=== PATIENT | male | born 1935 | race Caucasian/White ===

== ENCOUNTER 2020-02-08 16:32 | Emergency (ER) | payer OTHER, MEDICARE ==
[~2020-02-08] VITALS: Ht 195.6 cm; Wt 96.8 kg
[2020-02-08 17:13] LABS: BASOPHILS % (AUTO) 1.1 % (0-1); EOSINOPHILS # (AUTO) 0.1 X10'3 (0-0.9); EOSINOPHILS % (AUTO) 2.8 % (0-6); HEMATOCRIT 36.9 % (42.0-52.0); HEMOGLOBIN 12.9 g/dl (14.0-17.9); LYMPHOCYTES # (AUTO) 0.7 X10'3 (1.1-4.8); LYMPHOCYTES % (AUTO) 15.9 % (21-51); MEAN CORPUSCULAR HEMOGLOBIN 33.1 PG (27.0-31.0); MEAN CORPUSCULAR VOLUME 94.5 FL (78-98); MEAN PLATELET VOLUME 7.4 FL (7.4-10.4); MONOCYTES # (AUTO) 0.3 X10'3 (0-0.9); NEUTROPHILS # (AUTO) 3.1 X10'3 (1.8-7.7); NEUTROPHILS % (AUTO) 73.2 % (42-75); PLATELET COUNT 180 X10'3 (140-440); RED CELL DISTRIBUTION WIDTH 13.5 % (11.5-14.5); WHITE BLOOD COUNT 4.2 X10'3 (4.5-11.0)
[2020-02-08] MEDS ORDERED: LOSA100T57 PO (17:13)
[2020-02-08] MEDS ORDERED: METF-900 PO (17:13)
[2020-02-08] MEDS ORDERED: CARV-50 PO (17:13)
[2020-02-08 17:26] LABS: ALANINE AMINOTRANSFERASE 22 U/L (12-78); ALBUMIN 3.9 G/DL (3.4-5.0); ALBUMIN/GLOBULIN RATIO 1.5 (1.1-1.5); ALKALINE PHOSPHATASE 62 IU/L (46-116); ANION GAP 9 (8-16); ASPARTATE AMINO TRANSFERASE 13 U/L (10-37); BILIRUBIN,TOTAL 0.7 MG/DL (0.1-1.0); BLOOD UREA NITROGEN 20 MG/DL (7-18); CALCIUM 8.7 MG/DL (8.5-10.1); CHLORIDE 96 MMOL/L (99-107); CREATININE 1.43 MG/DL (0.60-1.10); GLUCOSE 174 MG/DL (70-104); POTASSIUM 4.2 MMOL/L (3.5-5.1); SODIUM 131 MMOL/L (135-145); TOTAL CARBON DIOXIDE 26.2 MMOL/L (24-32); TOTAL PROTEIN 6.5 G/DL (6.4-8.2); eGFR 47 ML/MIN
[2020-02-08 18:07] VITALS: BP 145/83
== END 2020-02-08 17:55 | disposition home or self-care (01) ==
LOC: ER 16:33
DX: I95.1 Orthostatic hypotension (principal); T44.6X5A Adverse effect of alpha-adrenoreceptor antagonists, initial encounter; E11.9 Type 2 diabetes mellitus without complications; Y92.89 Other specified places as the place of occurrence of the external cause
CPT/HCPCS: 36415; 71045; 80053; 84484; 85025; 93005; 99285

== ENCOUNTER 2021-11-16 03:57 | Emergency (ER) | payer OTHER, MEDICARE ==
[~2021-11-16] VITALS: Ht 195.6 cm; Wt 92.7 kg
[~2021-11-16 03:57] MED LIST: CARV-50 PO; LOSA100T57 PO; METF-900 PO
--- NOTE | 2021-11-16 04:51 | NUR ---
Pt. stated he wanted to "kill two birds with one stone" by coming to the ED with chest pain because he is also having hip problems and wants to get an x-ray done.
[2021-11-16 05:40] LABS: BASOPHILS % (AUTO) 0.2 % (0-1); EOSINOPHILS # (AUTO) 0.1 X10'3 (0-0.9); EOSINOPHILS % (AUTO) 1.5 % (0-6); HEMATOCRIT 35.2 % (42.0-52.0); HEMOGLOBIN 12.1 g/dl (14.0-17.9); LYMPHOCYTES # (AUTO) 0.7 X10'3 (1.1-4.8); LYMPHOCYTES % (AUTO) 15.4 % (21-51); MEAN CORPUSCULAR HEMOGLOBIN 32.4 PG (27.0-31.0); MEAN CORPUSCULAR HGB CONC 34.5 g/dL (33.0-36.5); MEAN CORPUSCULAR VOLUME 93.8 FL (78-98); MEAN PLATELET VOLUME 7.2 FL (7.4-10.4); MONOCYTES # (AUTO) 0.4 X10'3 (0-0.9); MONOCYTES % (AUTO) 7.8 % (2-12); NEUTROPHILS # (AUTO) 3.5 X10'3 (1.8-7.7); NEUTROPHILS % (AUTO) 75.1 % (42-75); PLATELET COUNT 183 X10'3 (140-440); RED BLOOD COUNT 3.75 X10'6 (4.70-6.10); RED CELL DISTRIBUTION WIDTH 14.1 % (11.5-14.5); WHITE BLOOD COUNT 4.7 X10'3 (4.5-11.0)
[2021-11-16 05:53] LABS: ALANINE AMINOTRANSFERASE 71 U/L (12-78); ALBUMIN 3.5 G/DL (3.4-5.0); ALBUMIN/GLOBULIN RATIO 1.5 (1.1-1.5); ALKALINE PHOSPHATASE 95 IU/L (46-116); ANION GAP 4 (8-16); ASPARTATE AMINO TRANSFERASE 101 U/L (10-37); BILIRUBIN,TOTAL 1.3 MG/DL (0.1-1.0); BLOOD UREA NITROGEN 15 MG/DL (7-18); BUN/CREATININE RATIO 18.5 (5.4-32.0); CALCIUM 8.4 MG/DL (8.5-10.1); CHLORIDE 102 MMOL/L (99-107); CREATININE 0.81 MG/DL (0.60-1.10); GLUCOSE 183 MG/DL (70-104); POTASSIUM 4.1 MMOL/L (3.5-5.1); SODIUM 135 MMOL/L (135-145); TOTAL CARBON DIOXIDE 28.7 MMOL/L (24-32); TOTAL PROTEIN 5.8 G/DL (6.4-8.2); eGFR > 90 ML/MIN
[2021-11-16 08:14] VITALS: BP 120/73
== END 2021-11-16 08:21 | disposition home or self-care (01) ==
LOC: ER 03:57
DX: R07.89 Other chest pain (principal); R10.13 Epigastric pain; I10 Essential (primary) hypertension; E11.9 Type 2 diabetes mellitus without complications; N40.0 Benign prostatic hyperplasia without lower urinary tract symptoms; Z88.0 Allergy status to penicillin; Z79.899 Other long term (current) drug therapy; Z79.01 Long term (current) use of anticoagulants
CPT/HCPCS: 36415; 71045; 80053; 83880; 84484; 85025; 93005; 99285

== ENCOUNTER 2021-11-29 08:49 | Emergency (ER) | payer OTHER, MEDICARE ==
[~2021-11-29] VITALS: Ht 195.6 cm; Wt 90.9 kg
[2021-11-29 09:18] VITALS: BP 132/64
[2021-11-29] MEDS ORDERED: MUPI22OI30 TOP (10:53)
== END 2021-11-29 11:11 | disposition home or self-care (01) ==
LOC: ER 08:50
DX: L24.9 Irritant contact dermatitis, unspecified cause (principal); M54.50 Low back pain, unspecified; I10 Essential (primary) hypertension; E11.9 Type 2 diabetes mellitus without complications; N40.0 Benign prostatic hyperplasia without lower urinary tract symptoms; Z88.0 Allergy status to penicillin; Z79.2 Long term (current) use of antibiotics; Z79.899 Other long term (current) drug therapy
CPT/HCPCS: 99283

== ENCOUNTER 2023-04-09 19:02 | Emergency (ER) | payer OTHER, MEDICARE ==
[~2023-04-09] VITALS: Ht 198.1 cm; Wt 93.2 kg
[~2023-04-09 19:02] MED LIST changes: -LOSA100T57 PO; +LOSA100T58 PO
[2023-04-09 19:20] VITALS: TEMP 98.2
[2023-04-09 20:15] LABS: BILIRUBIN,URINE NEGATIVE (Neg); CLARITY,URINE TURBID (Clear); COLOR,URINE YELLOW (Yellow); GLUCOSE, URINE NEGATIVE (Neg); KETONES,URINE NEGATIVE (Neg); LEUKOCYTE ESTERASE ,URINE SMALL (Neg); NITRITES, URINE NEGATIVE (Neg); OCCULT BLOOD,URINE LARGE (Neg); PROTEIN,URINE 30 mg/dl (Neg); UROBILINOGEN,URINE 0.2 E.U/dL (0.2-1.0)
[2023-04-09 20:54] LABS: UA COLLECTION TYPE CLN CATCH MIDSTREAM
[2023-04-09 20:55] LABS: SQUAMOUS EPITHELIAL CELL,UR NONE SEEN /LPF (FEW)
[2023-04-09 20:56] LABS: RBC,URINE TNTC /HPF (0-2); WBC,URINE TNTC /HPF (0-4)
[2023-04-09 20:57] LABS: BACTERIA,URINE 2+ /HPF (Neg)
[2023-04-09 21:59] VITALS: BP 128/59; PULSE 68; RESP 18; O2SAT 100
[2023-04-09] MEDS ORDERED: iohexol 300mg/ml 100ml inj. ONE (23:32)
[2023-04-10 00:07] LABS: ALANINE AMINOTRANSFERASE 10 U/L (12-78); ALBUMIN 3.5 G/DL (3.4-5.0); ALBUMIN/GLOBULIN RATIO 1.3 (1.1-1.5); ALKALINE PHOSPHATASE 64 IU/L (46-116); ANION GAP 8 (8-16); APTT 39 SECONDS (22-32); ASPARTATE AMINO TRANSFERASE 10 U/L (10-37); BILIRUBIN,TOTAL 0.7 MG/DL (0.1-1.0); BLOOD UREA NITROGEN 30 MG/DL (7-18); BUN/CREATININE RATIO 29.4 (10.0-20.0); CALCIUM 8.7 MG/DL (8.5-10.1); CHLORIDE 95 MMOL/L (99-107); CREATININE 1.02 MG/DL (0.60-1.10); GLUCOSE 141 MG/DL (70-104); INR 1.2 INR; POTASSIUM 4.2 MMOL/L (3.5-5.1); PROTHROMBIN TIME 12.6 SECONDS (9.0-12.0); SODIUM 129 MMOL/L (135-145); TOTAL CARBON DIOXIDE 26.5 MMOL/L (24-32); TOTAL PROTEIN 6.2 G/DL (6.4-8.2); eCRCL 66 ML/MIN; eGFR 69 ML/MIN
[2023-04-10 00:58] LABS: BASOPHILS % (AUTO) 0.2 % (0-1); EOSINOPHILS # (AUTO) 0.1 X10'3 (0-0.9); HEMATOCRIT 30.5 % (42.0-52.0); HEMOGLOBIN 10.8 g/dl (14.0-17.9); LYMPHOCYTES # (AUTO) 0.8 X10'3 (1.1-4.8); LYMPHOCYTES % (AUTO) 11.2 % (21-51); MEAN CORPUSCULAR HEMOGLOBIN 33.8 PG (27.0-31.0); MEAN CORPUSCULAR HGB CONC 35.4 g/dL (33.0-36.5); MEAN CORPUSCULAR VOLUME 95.5 FL (78-98); MEAN PLATELET VOLUME 7.3 FL (7.4-10.4); MONOCYTES # (AUTO) 0.6 X10'3 (0-0.9); MONOCYTES % (AUTO) 8.8 % (2-12); NEUTROPHILS # (AUTO) 5.6 X10'3 (1.8-7.7); NEUTROPHILS % (AUTO) 78.8 % (42-75); PLATELET COUNT 153 X10'3 (140-440); RED CELL DISTRIBUTION WIDTH 14.1 % (11.5-14.5); WHITE BLOOD COUNT 7.1 X10'3 (4.5-11.0)
[2023-04-10] MEDS ORDERED: NITR100C6 PO (01:51)
--- NOTE | 2023-04-12 07:56 | NUR ---
TELEPHONE CALL TO PATIENT PER DR VILLARREAL, PER PATIENT HE IS IMPROVING AND TAKING MACROBID PRESCRIBED. NO FURTHER ORDERS PER DR VILLARREAL.
== END 2023-04-10 02:13 | disposition home or self-care (01) ==
LOC: ER 19:03
DX: N39.0 Urinary tract infection, site not specified (principal); R31.9 Hematuria, unspecified; N40.0 Benign prostatic hyperplasia without lower urinary tract symptoms; I10 Essential (primary) hypertension; E11.9 Type 2 diabetes mellitus without complications; Z88.0 Allergy status to penicillin; Z79.899 Other long term (current) drug therapy
CPT/HCPCS: 36415; 74177; 80053; 81001; 85025; 85610; 85730; 87077; 87088; 87186; 99285; Q9967

== ENCOUNTER 2025-05-06 06:35 | Inpatient (IN) | payer OTHER, MEDICARE ==
[2025-05-06] VITALS (9 sets, daily range): BP systolic 98–146; BP diastolic 50–75; PULSE 84–121; RESP 13–22; TEMP 97.6–98.4; O2SAT 94–99
[~2025-05-06] VITALS: Ht 195.6 cm; Wt 98.0 kg
[~2025-05-06 06:35] MED LIST changes: -METF-900 PO; +NITR100C6 PO
--- NOTE | 2025-05-06 07:01 | ELECTROCARDIOGRAPH REPORT ---
[facility] Test Date: 2025-05-06 Test Time: 06:53:24 Pat Name: MONET BOYER Department: EMERGENCY ROOM Room: Gender: M Edger Saw Operator: SUSAN : 1935 Requested By: PRANAY LEO Order Number: [id number] Reading MD: Measurements Intervals [place] Rate: 114 P: 0 CT: 0 QRS: -53 QRSD: 141 T: 24 QT: 358 QTc: 494 Interpretive Statements Atrial fibrillation RBBB and LAFB Please click the below link to view image of tracing.
[2025-05-06 07:14] LABS: MEAN PLATELET VOLUME 7.1 FL (7.4-10.4); RED CELL DISTRIBUTION WIDTH 16.8 % (11.5-14.5)
[2025-05-06 07:32] LABS: CREATININE 1.05 MG/DL (0.60-1.10); PRO BRAIN NATRIURETIC PEPTIDE 1595 PG/ML (0-450); TOTAL CARBON DIOXIDE 24.9 MMOL/L (24-32); eCRCL 60 ML/MIN; eGFR 67 ML/MIN
--- NOTE | 2025-05-06 07:43 | RADIOLOGY REPORT ---
CHEST RADIOGRAPH Indication: CP Technique: Single frontal view of the chest was obtained Comparison: CHEST,SINGLE VIEW on DOS: 11/16/21 FINDINGS: Lines and Tubes: None Lungs: No focal consolidation. Pleura: No effusion. No pneumothorax. Cardiomediastinal contours: Unremarkable Bones: No acute osseous abnormality. IMPRESSION: Mild pulmonary edema
[2025-05-06 07:56] LABS: EOSINOPHILS % (MANUAL) 1.0 % (0-6); LYMPHOCYTES % (MANUAL) 23.0 % (21-51); METAMYLEOCYTES% (MANUAL) 1.0 % (0-0); MONOCYTES % (MANUAL) 13.0 % (2-12); NEUTROPHILS % (MANUAL) 62.0 % (42-75); PLATELET ESTIMATE NORMAL
--- NOTE | 2025-05-06 08:33 | Physician Documentation ---
History of Present Illness ~ Chief Complaint: Dizziness Stated Complaint: DIZZINESS Time Seen by MD: 08:00 Primary Medical Doctor: dorothy Mode of Arrival: EMS HPI 89-year-old male presenting with a chief complaint of lightheadedness and almost passing out. He reports that he went to use the restroom this morning and while he was urinating he started feeling very lightheaded. He felt like he was going to pass out so she went and laid down on his bed in the symptoms went away. He states that he has been feeling this way actually over the last three days with frequent bouts of lightheadedness. In addition he states that he has had some nonbloody loose stools for the past three weeks as well as a slight cough for about three days. The cough is productive of some clear sputum. He otherwise denies any fever, chills, chest pain, shortness of breath or any other associated symptoms. The patient does have a history of atrial fibrillation and is on carvedilol, amlodipine and valsartan as well as metformin for his diabetes mellitus. He states that he takes his medications regularly without skipping any doses. His do all operator is Dr. King. He previously was on Eliquis for his atrial fibrillation but this was stopped about five months ago with concerns for bleeding. Medication Reconciliation Allergies: Coded Allergies: Penicillins (Verified Allergy, Unknown, 04/09/23) Scheduled Amlodipine* (Norvasc*), 1 TAB PO DAILY, (Reported) Carvedilol* (Coreg*), 1 TABLET PO BID, (Reported) Losartan Potassium (Losartan Potassium), 1 TAB PO DAILY, (Reported) Metformin HCl (Metformin HCl ER), 1 TAB PO BID, (Reported) Sitagliptin Phosphate* (Januvia*), 1 TAB PO DAILY, (Reported) Tamsulosin Hcl* (Flomax*), 1 CAP PO DAILY, (Reported) Discontinued Medications Nitrofurantoin Monohyd/M-Cryst (Macrobid 100 mg Capsule), 1 CAP PO Q12H Discontinued Reason: patient no longer taking Past Medical History Past Medical History: Hypertension, BPH, Diabetes Past Surgical History: noncontributory Alcohol Use: None Drug Use: none Review of Systems All Other Systems at this time: Reviewed and Negative Physical Exam Vital Signs: Temperature: 98.5, Source: Oral, Heart Rate: 133, Respiratory Rate: 16, BP: 73/46, Pulse Oximetry: 97, Weight: 98.000 Oxygen Flow Rate: 0 Physical Exam I have reviewed the triage vitals. CONST: Well developed and well nourished. In no acute distress HENT: Head Atraumatic EYES: Pupils are equal, round and reactive to light. Normal conjunctiva NECK: Normal range of motion. Supple. CARDIO: Irregularly irregular rhythm. Tachycardic, No murmurs, rubs, or gallops. S1, S2. PULM/CHEST: No respiratory distress. Lungs clear to auscultation. No wheeze ABD: Soft and nontender. Nondistended. Bowel sounds normal. No guarding. : Exam deferred MSK: No edema. No deformity. NEURO: Alert and oriented to person, place and time. Moving all extremities SKIN: Warm and dry. Pale PSYCH: Normal mood and affect. Good eye contact. Progress Results/Orders Results/Orders Orders - PRANAY LEO MD Chest,Single View (05/06/25 06:52) Monitor (05/06/25 06:52) Saline Lock (05/06/25 06:52) Oxygen (05/06/25 06:52) Type And Screen (05/06/25 08:28) Lrpc - Active Bleeding (05/06/25 08:33) Occult Bld Stool (05/06/25 08:33) Completed Orders - PRANAY LEO MD Chest,Single View (05/06/25 06:52) Cbc/Diff (05/06/25 06:52) BMP (05/06/25 06:52) PBNP (05/06/25 06:52) Electrocardiogram (05/06/25 06:52) Hs Troponin I W Calculations (05/06/25 06:52) Hs Troponin I W Calculations (05/06/25 08:52) Hs Troponin I W Calculations (05/06/25 09:52) Man Diff (05/06/25 06:50) Pt Inr (05/06/25 08:28) PTT (05/06/25 08:28) Normal Saline 500ml Iv Soln (Sodium Chlo (05/06/25 08:35) Medications Received in ER Medications (Trade) Dose Ordered Sig/Karri Route PRN Reason Start Time Stop Time Status Last Admin Dose Admin Sodium Chloride 500 ml @ 500 mls/hr ONCE ONCE IV 05/06/25 08:35 05/06/25 09:34 DC 05/06/25 08:49 500 MLS/HR Pantoprazole Sodium 100 ml @ 20 mls/hr Q5H IV 05/06/25 11:00 05/06/25 10:20 DC 05/06/25 10:06 20 MLS/HR (Protonix 40mg IV) 80 mg ONCE ONCE IV 05/06/25 10:00 05/06/25 10:01 DC 05/06/25 10:04 80 MG Vital Signs 05/06/25 05/06/25 05/06/25 05/06/25 06:39 06:53 07:15 07:31 Temp 98.5 Pulse 77 114 114 122 133 Resp 16 16 12 B/P (MAP) 113/64 103/55 86/56 (66) 108/45 73/46 Pulse Ox 97 85 O2 Flow Rate 0 0 05/06/25 05/06/25 05/06/25 05/06/25 08:31 09:26 10:48 11:03 Temp 98.3 98.4 Pulse 123 100 105 106 Resp 9 25 13 14 B/P (MAP) 119/65 (83) 131/70 (90) 118/75 132/66 Pulse Ox 100 98 O2 Flow Rate 0 0 Laboratory Tests Test 05/06/25 06:50 05/06/25 08:58 05/06/25 10:09 05/06/25 10:16 White Blood Count 1.5 L Red Blood Count 2.09 L Hemoglobin 7.2 L Hematocrit 20.8 *L Mean Corpuscular Volume 99.4 H Mean Corpuscular Hemoglobin 34.7 H Mean Corpuscular Hemoglobin Concent 34.9 Red Cell Distribution Width 16.8 H Platelet Count 166 Mean Platelet Volume 7.1 L Neutrophils (%) (Auto) 60.1 Lymphocytes (%) (Auto) 24.9 Monocytes (%) (Auto) 12.3 H Eosinophils (%) (Auto) 2.2 Basophils (%) (Auto) 0.5 Neutrophils # (Auto) 0.9 L Lymphocytes # (Auto) 0.4 L Monocytes # (Auto) 0.2 Eosinophils # (Auto) 0.0 Basophils # (Auto) 0.0 CBC Comment Differential Total Cells Counted 100 Neutrophils % (Manual) 62.0 Lymphocytes % (Manual) 23.0 Monocytes % (Manual) 13.0 H Eosinophils % (Manual) 1.0 Metamyelocytes % 1.0 H Platelet Estimate Normal Red Blood Cell Morphology Perf Basophilic Stippling Anisocytosis 1+ Macrocytosis 1+ Sodium Level 129 L Potassium Level 4.6 Chloride Level 96 L Carbon Dioxide Level 24.9 Anion Gap 8 Blood Urea Nitrogen 20 H Creatinine 1.05 Estimated GFR/1.73 m2 67 BUN/Creatinine Ratio 19.0 Glucose Level 142 H Calcium Level 8.1 L Troponin I High Sensitivity 10 10 12 Pro-B-Type Natriuretic Peptide 1595 H Albumin 3.1 L Chemistry Comments Prothrombin Time 11.9 INR International Normalized Ratio 1.2 Activated Partial Thromboplast Time 31 Coagulation Comments Troponin I High Sens Percent Delta 0 20 Troponin I Hi Sens Absolute Change 0 2 EKG/XRAY/CT/US/VASC/MRI EKG : Additional Comment EKG as interpreted by ED MD indicating atrial fibrillation with rapid ventricular response at a rate of 114 beats per minute, normal axis, right bundle branch block with a left anterior fascicular block, no ischemia Chest X-Ray : Additional Comments CHEST RADIOGRAPH Indication: CP Technique: Single frontal view of the chest was obtained Comparison: CHEST,SINGLE VIEW on DOS: 11/16/21 FINDINGS: Lines and Tubes: None Lungs: No focal consolidation. Pleura: No effusion. No pneumothorax. Cardiomediastinal contours: Unremarkable Bones: No acute osseous abnormality. IMPRESSION: Mild pulmonary edema Medical Decision Making Additional Information 89-year-old male presenting with acute onset lightheadedness secondary to anemia. The patient's hemoglobin is 7.2 and he has a hematocrit of 20. We did do a stool occult blood guaiac test which was negative. A source of bleeding was not yet identified. The anemia has also constipation to go into rapid ventricular response from his chronic atrial fibrillation. Patient's heart rate was significantly elevated into the 120s. Given that this is a responds to his anemia he was not given any rate control agents the patient had bouts of hyp otension when he sits up. Patient was given 500 mL of IV normal saline. He was started on 2 units of PRBCs. He will need admission for further treatment and workup including a GI consult as well. Departure Disposition: ADMITTED INPATIENT Admitted to Inpatient Unit: to hospitalist Admission Level of Care: PCU with Tele Impression: Primary Impression: Anemia Additional Impression: Atrial fibrillation with rapid ventricular response Condition: Guarded Referrals: NO PRIMARY CARE PROVIDER (PCP) Critical Care Note Total Time (mins): 78 Critical Care Note The very real possibility of a deterioration of this patient's condition requi red the highest level of my preparedness for sudden, emergent intervention. I provided critical care services, which included medication orders, frequent reevaluations of the patient's condition and response to treatment, ordering and reviewing test results, and discussing the case with various consultants. Excludes time spent performing separately billable procedures. The critical care time associated with the care of the patient was. Signature Scribe Signature: 1 Attestation: 1 PRANAY LEO MD May 06, 2025 08:33
[2025-05-06] MEDS: normal saline 500ml IV soln 500 ML IV ONE (08:49)
[2025-05-06] MEDS ORDERED: AMLO2.5T2 PO (09:09)
[2025-05-06] MEDS ORDERED: METF-517 PO (09:09)
[2025-05-06] MEDS ORDERED: SITA25TA3 PO (09:09)
[2025-05-06] MEDS ORDERED: TAMS-55 PO (09:09)
[2025-05-06 09:20] LABS: APTT 31 SECONDS (22-32); INR 1.2 INR
[2025-05-06] MEDS ORDERED: pantoprazole 40mg IV 80 MG in normal saline 100ml IV soln 100 ML IV ONE (09:50)
[2025-05-06] MEDS: pantoprazole 40MG/NS 100ML BAG 100 ML IV SCH (10:06)
[2025-05-06] MEDS ORDERED: magnesium sulf-water 4G/100mL 100 ML IV PRN (10:55)
[2025-05-06] MEDS ORDERED: mag hydrox/Alum hydrox/simeth 30ml oral suspension PO PRN (10:55)
[2025-05-06] MEDS ORDERED: ondansetron/PF 4mg/2ml inj IV PRN (10:55)
[2025-05-06] MEDS ORDERED: bisacodyl 10mg suppository rectal RC PRN (10:55)
[2025-05-06] MEDS ORDERED: magnesium sulf-water 2g/50mL 50 ML IV PRN (10:55)
[2025-05-06] MEDS ORDERED: potassium Cl 20 mEq SR tablet PO PRN ×2 (10:55)
[2025-05-06] MEDS ORDERED: potassium Cl 40MEQ/1/2NS 520ml 520 ML IV PRN (10:55)
[2025-05-06] MEDS ORDERED: magnesium hydroxide 30ml (MOM) UD suspension PO PRN (10:55)
[2025-05-06] MEDS ORDERED: HYDROcodone/acetaminophen 5mg/325mg tablet PO PRN (10:55)
[2025-05-06] MEDS ORDERED: DEXTROSE 15 GM of carb/4 tabs (each vial/BOTTLE has 4 tablets) PO PRN ×2 (11:05)
[2025-05-06] MEDS ORDERED: glucagon, human recombinant 1mg kit SUBCUT PRN (11:05)
[2025-05-06] MEDS ORDERED: dextrose 50%-water 50ml dispensing syringe IV PRN ×2 (11:05)
[2025-05-06 11:23] LABS: OCCULT BLOOD STOOL NEGATIVE (Neg)
[2025-05-06] MEDS: docusate sod 100mg capsule PO SCH (11:38)
[2025-05-06] MEDS: diltiazem 5mg/ml 5ml inj. IV ONE (11:38)
[2025-05-06 11:39] LABS: LEUKOCYTE ESTERASE ,URINE NEGATIVE (Neg); NITRITES, URINE NEGATIVE (Neg); OCCULT BLOOD,URINE NEGATIVE (Neg)
[2025-05-06] MEDS: heparin, porcine 5000 units/ml vial SQ SCH (11:39)
[2025-05-06] MEDS: normal saline 1000ml 1,000 ML IV SCH (11:39)
[2025-05-06 11:41] LABS: UA COLLECTION TYPE NON-SPECIFIED
[2025-05-06] MEDS: INSULIN LISPRO 100 UNIT/ML INSULN.PEN MULTI-DOSE SQ SCH (11:58)
--- NOTE | 2025-05-06 12:14 | HISTORY AND PHYSICAL-Residence ---
History & Physical Providers to CC Resident Creating Document: STACY SPENCER, RES ~ History of Present Illness Primary Medical Doctor: dorothy Reason for Admit\Complaint: Dizziness History of Present Illness This is a 89-year-old male with a history of hypertension, diabetes mellitus type 2, atrial fibrillation, BPH was brought to the ER by EMS with a chief complaint of dizziness since the last two or three days. Patient states that he has been feeling dizzy when he tries to walk to the restroom and back and had an episode of presyncope while urinating this morning hence called EMS. He uses a cane to ambulate at home and elsewhere. He denies any abdominal pain, palpitation, syncopal episodes, fever, chest pain, shortness of breath. Patient has had longstanding anemia and sees Dr. Young who is his PCP but never saw a GI/tax clerk for anemia workup. He is on oral iron supplementation. He was previously on Eliquis for atrial fibrillation but stopped six months ago when he had an episode of blood in stools. He denies any hematemesis, melena currently. He underwent pacemaker placement by Dr. King. ED course: Patient received 80 mg of IV Protonix followed by Protonix drip. Bedside stool guaiac was negative and Protonix drip was later discontinued. Pulse was irregular in his EKG on arrival to the hospital showed atrial fibrillation with heart rate of [address] King is his pole shaver and he takes carvedilol for atrial fibrillation. He received one dose of 10 mg IV Cardizem in the ER. Lab workup was significant and four hemoglobin of 7.2, leukopenia with a white count of 1.5k and absolute neutrophil count of 900. Patient is paged for admission for management of atrial fibrillation, hydration and workup for possible GI bleed Allergies: Coded Allergies: Penicillins (Verified Allergy, Unknown, 04/09/23) Home Medications Home Medications Active Reported Januvia* (Sitagliptin Phosphate*) 25 Mg Tablet 1 Tab PO DAILY 30 Days Metformin HCl ER (Metformin HCl) 1,000 Mg Tab.er.24 1 Tab PO BID 30 Days Norvasc* (Amlodipine Besylate) 2.5 Mg Tablet 1 Tab PO DAILY 30 Days Flomax* (Tamsulosin HCl) 0.4 Mg Cap.sr.24h 1 Cap PO DAILY 30 Days Coreg* (Carvedilol) 12.5 Mg Tablet 1 Tablet PO BID Losartan Potassium 100 Mg Tablet 1 Tab PO DAILY Past Medical History Past Medical History Hypertension, atrial fibrillation, BPH, diabetes type 2 Past Surgical History Surgical History Comment Cholecystectomy Past Social History Social History Comment Used to smoke two packs per day for 30 years but quit 40 years ago. Used to drink two or three beers every night quit 35 years ago. Denies any drug use. 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 Lives with a his demented at home for whom he is the sole caregiver Smoking: Quit greater than 1 year Alcohol Use: None Drug Use: None ROS All Other Systems: Reviewed and Negative ROS Reviewed in full and negative except for the pertinent positives in HPI Exam Vitals: Vital Signs Date Time Temp Pulse Resp B/P (MAP) Pulse Ox O2 Delivery O2 Flow Rate FiO2 05/06/25 11:48 98.4 93 15 128/59 05/06/25 09:26 98 0 General: General: Very pale appearing, well developed, well nourished. Awake , alert, and oriented x4, resting comfortably in the bed, in no acute distress . HEENT: Atraumatic, normocephalic, EOMI, anicteric sclera B; pale conjunctiva; PERRLA, normal oropharynx, moist oral and nasal mucosa. Tympanic membrane , nose , throat clear. Neck: Trachea midline. Supple, full range of motion, no JVD, bruit , hepatojugular reflex , lymphadenopathy or masses, or other lesions Cardiac: Irregular rhythm, irregular rate no murmurs, rubs, or gallops. Normal S1 and S2, no S3 noticed. PMI is normal. Respiratory: Equal breath sounds bilaterally, no tachypnea; lungs clear to auscultation bilaterally, no wheezing ,rub or rales, or crackles. Chest wall is symmetric and without deformity. No signs of trauma. Chest wall is nontender. No signs of respiratory distress. Resonance is normal upon percussion bilaterally. Gastrointestinal: Abdomen symmetric, non-distended, soft, non-tender, normal bowel sounds x4 quadrant, normoactive, no hepatosplenomegaly , no masses , no bruit, no flank pain bilaterally. No voluntary guarding, rebound, or rigidity. No tenderness to percussion. No pulsatile masses. Equal femoral pulses. No Kumar's sign or McBurney point tenderness. Back; no CVA tenderness bilaterally, no deformities. Neck and back are without deformity as well. No tenderness noted on palpation of the spinous processes. Spinous processes are midline. Cervical, thoracic, and lumbar paraspinal muscles are not tender and are without spasm. : normal external genitalia, without lesions, swelling, masses or tenderness. Musculoskeletal: Extremities, normal range of motion, non-tender, muscle strength 5/5 x 4. Negative Homans signs bilaterally on lower extremity. Distal pulses full symmetrical, no clubbing, cyanosis , edema. Neurological: Speech is clear, alert, and oriented x 4. No motor or sensory deficit, deep tendon reflexes normal, cerebellar intact. Cranial nerves II-XII intact. Psych: Alert and or appropriate, normal affect. Vascular: Good distal pulses, which are equal x4; capillary refill less than 2 seconds. Skin: Warm, pale, dry, no pallor, no rash or petechiae. Diagnostic Data Last Recorded Lab Results: 05/06/25 0650 05/06/25 0650 Diagnostic Data: Laboratory Tests Test 05/06/25 08:58 Prothrombin Time 11.9 SECONDS (9.0-12.0) INR International Normalized Ratio 1.2 INR Activated Partial Thromboplast Time 31 SECONDS (22-32) Coagulation Comments Advance Care Planning Advanced Care plannin - 30 Minutes (I spent a total of 17 minutes on reviewing various resuscitative measures/ ACP with the patient at the time of admission. The patient has decided on a DNR code status) Additional Plan Atrial fibrillation with RVR EKG shows atrial fibrillation with RVR with a heart rate of 114. Heart rate is fluctuating between 80 to 140s. Received one dose of IV diltiazem 10 mg. Currently on oral Cardizem extended release tablet 180 mg. Hold if blood pressure less than 100/60 mm Hg Continue telemetry monitoring. Currently not on anticoagulation due to history of GI bleed. Considering the age of the patient (89 years old) risks of anticoagulation may be greater than benefits hence not restarting on anticoagulation. Follow up with pole shaver after discharge outpatient regarding management of atrial fibrillation. Presyncopal episode likely secondary to atrial fibrillation versus orthostatic hypotension Orthostatic vitals are positive. Currently on IV fluids at 100 mL/hour. Continue compression stockings and telemetry monitoring Type 2 diabetes mellitus Started on hyperglycemia protocol with 20 units long-acting Lantus insulin and medium dose Humalog insulin as needed. Follow up with the A1c, lipid panel. Patient takes metformin and Januvia at home for diabetes. Macrocytic anemia Leukopenia Hemoglobin 7.2, WBC count 1500, absolute neutrophil count 900, MCV 99. Requested labs from [facility] at [place] for CBC done two weeks ago to compare the acuity of anemia and leukopenia Received 80 mg Protonix followed by Protonix infusion in the ER. FOBT negative. Denies any hematemesis/melena. Protonix infusion discontinued and started on IV Protonix 40 mg daily. Monitor H&H Q 8 hours. Macrocytosis is likely secondary to reticulocytosis after iron supplementation. Ordered workup for anemia including LDH, reticulocyte count, haptoglobin, Benjamín test and ultrasound abdomen to look for hepatomegaly and splenomegaly. Consider prophylactic antibiotics given absolute neutrophil count less than 1000. Hypomagnesemia Mild hyponatremia Replace per protocol, continue IV fluids Code Status: DNR DVT Prophylaxis: Heparin subcutaneous Analgesia/Sedation: [place] p.r.n. Lines/Tubes: PIV Gi Prophylaxis: Protonix Nutrition: 60 g carb controlled diet PT: Yes Prognosis: Guarded Disposition: Admit to PCU with telemetry monitoring Stacy Castle MD Internal Medicine Resident PGY-1 Date of Service: May 06, 2025 Billing Provider: MIREYA LLANES MD,STACY CASTLE, RES May 06, 2025 12:14
[2025-05-06] MEDS: lactose-reduced food (Ensure Enlive) - 237ml bottle PO SCH (13:00)
[2025-05-06 13:27] LABS: MEAN PLATELET VOLUME 7.0 FL (7.4-10.4); RED CELL DISTRIBUTION WIDTH 16.1 % (11.5-14.5)
[2025-05-06 13:29] LABS: ABSOLUTE RETICS # 31600 /CUMM (23000-93000)
[2025-05-06 14:09] LABS: EOSINOPHILS % (MANUAL) 1.0 % (0-6); LYMPHOCYTES % (MANUAL) 34.0 % (21-51); METAMYLEOCYTES% (MANUAL) 1.0 % (0-0); MONOCYTES % (MANUAL) 3.0 % (2-12); NEUTROPHILS % (MANUAL) 61.0 % (42-75)
[2025-05-06 14:10] LABS: PLATELET ESTIMATE NORMAL
[2025-05-06 16:26] LABS: C DIFF ANTIGEN NEGATIVE (NEGATIVE); C DIFF SPECIMEN=DIARRHEA? ACCEPTABLE; C DIFFICILE TOXINS A&B NEGATIVE (Neg)
[2025-05-06 18:44] LABS: MEAN PLATELET VOLUME 7.1 FL (7.4-10.4); RED CELL DISTRIBUTION WIDTH 16.3 % (11.5-14.5)
[2025-05-06 18:53] LABS: % IRON SATURATION 44 % (11-46)
[2025-05-06] MEDS: K and/or MAG REPLACEMENT MC SCH (20:00)
[2025-05-06] MEDS: diltiazem SR 60mg capsule (twice daily) PO SCH (20:31)
[2025-05-06] MEDS: insulin glargine (Lantus) pen - multi-dose SQ SCH (21:00)
[2025-05-07 02:00] VITALS: BP 120/57; PULSE 66; RESP 12; TEMP 97.4; O2SAT 98
[2025-05-07 03:35] LABS: MEAN PLATELET VOLUME 6.8 FL (7.4-10.4); RED CELL DISTRIBUTION WIDTH 16.7 % (11.5-14.5)
[2025-05-07 03:45] LABS: CREATININE 1.06 MG/DL (0.60-1.10); TOTAL CARBON DIOXIDE 25.2 MMOL/L (24-32); eCRCL 60 ML/MIN; eGFR 66 ML/MIN
[2025-05-07 06:00] VITALS: BP 131/89; PULSE 68; RESP 13; TEMP 96.9; O2SAT 97
[2025-05-07] MEDS: magnesium Cl slow-release 64mg tablet PO PRN (07:40)
[2025-05-07 08:00] VITALS: RESP 15; O2SAT 96
[2025-05-07] MEDS ORDERED: magnesium sulf-water 2g/50mL 50 ML IV ONE (08:45)
--- NOTE | 2025-05-07 10:42 | RADIOLOGY REPORT ---
INDICATION: hepatomegaly/ spleenomegaly TECHNIQUE: Multiple real-time sonographic images of the abdomen were obtained. COMPARISON: CT CT ABDOMEN PELVIS on DOS: 04/10/23 FINDINGS: Evaluation is limited due to obscuration from bowel gas. The liver is coarsened in echogenicity. The liver measures 18cm. No intrahepatic biliary ductal dilatation is noted. The gallbladder is surgically absent. The common duct measures 0.6 cm and is unremarkable. No pericholecystic fluid is noted. The right kidney measures 8.7 cm. No hydronephrosis. The left kidney measures 8.8 cm. No hydronephrosis. Poor visualization of the bilateral kidneys which limits evaluation. The spleen measures 11cm, within normal limits. The echogenicity is within normal limits. The pancreas is not well visualized due to obscuration from bowel gas. The visualized portions of the IVC and aorta are grossly unremarkable. IMPRESSION: Evaluation is significantly limited due to obscuration from bowel gas. Coarsened liver echotexture suggestive of chronic liver disease. Hepatomegaly.
[2025-05-07 11:00] VITALS: BP 115/49; PULSE 66; RESP 15; TEMP 98.8; O2SAT 96
[2025-05-07 11:59] LABS: MEAN PLATELET VOLUME 7.2 FL (7.4-10.4); RED CELL DISTRIBUTION WIDTH 16.7 % (11.5-14.5)
--- NOTE | 2025-05-07 14:40 | DISCHARGE SUMMARY-Residence ---
Discharge Summary Providers to CC Resident Creating Document: BEATRIZ AMES, RES CC: KEV BARBER MD ~ Discharge Summary Admission Diagnosis: Afib, dizziness, poss GI bleed Hospital Course DATE OF ADMISSION: 05/06/25 DATE OF DISCHARGE: 05/07/25 Discharge Diagnosis\Comment: Atrial fibrillation with RVR Presyncopal episode likely secondary to atrial fibrillation versus orthostatic hypotension Type 2 diabetes mellitus Macrocytic anemia Leukopenia Hypomagnesemia Mild hyponatremia Operations\Procedures: None Consultants: None Complications: None Condition on DC: Stable Continued Medications: Amlodipine* (Norvasc*) 2.5 Mg Tablet 1 TAB PO DAILY for 30 Days, #30 TAB Carvedilol* (Coreg*) 12.5 Mg Tablet 1 TABLET PO BID, TABLET Losartan Potassium (Losartan Potassium) 100 Mg Tablet 1 TAB PO DAILY, TAB Metformin HCl (Metformin HCl ER) 1,000 Mg Tab.er.24 1 TAB PO BID for 30 Days, #30 TAB 0 Refills Sitagliptin Phosphate* (Januvia*) 25 Mg Tablet 1 TAB PO DAILY for 30 Days, #30 TAB Tamsulosin Hcl* (Flomax*) 0.4 Mg Cap.sr.24h 1 CAP PO DAILY for 30 Days, #30 CAP Discharge Summary: Hospital course A 89-year-old male with a history of hypertension, diabetes mellitus type 2, atrial fibrillation, BPH was brought to the ER by EMS with a chief complaint of dizziness since the last two or three days. Patient stated that he had been dizziness when he tried to walk to the restroom and back and had an episode of presyncope while urinating. He denied any abdominal pain, palpitation, syncopal episodes, fever, chest pain, shortness of breath. On admission patient's heart rate is fluctuating between 80 to 140s an EKG shows atrial fibrillation with RVR bifascicular block, he received one dose of IV diltiazem 10 mg in the ED and was later initiated on oral Cardizem extended-release tablet 180 mg. Patient has a history of atrial fibrillation for which he was on Eliquis, but recently discontinued anticoagulation due to episode of GI bleed. Patient had a presyncopal episode likely secondary to atrial fibrillation/orthostatic hypotension, orthostatic vitals were positive and patient was initiated on IV fluids 100 mL/hour. Patient has history of type 2 diabetes mellitus, we treated the patient as per moderate sliding dose insulin. Patient has had longstanding anemia and sees Dr. Young who is his PCP but never saw a GI/crumb packer for anemia workup. This admission patient's labs showed bicytopenia, hemoglobin was 7.2, and he received 1 unit PRBC. Patient was initially put on IV Protonix and Protonix infusion because of possible GI bleed considering patient's hemoglobin, however fecal occult blood test was negative .Patient denied any hematemesis, melena so we discontinued his Protonix eventually. Patient's WBC count was 1500, absolute neutrophil count was 900, advised patient he needs follow-up with a crumb packer outpatient basis for his chronic anemia and newly diagnosed leukopenia. Patient recovered earlier than anticipated with the current treatment. Hence was discharged early. Significant imaging 05/06/25- Chest x-ray: Mild pulmonary edema 05/07/25 Abdominal ultrasound : Evaluation is significantly limited due to obscuration from bowel gas. Coarsened liver echotexture suggestive of chronic liver disease. Hepatomegaly. Vital Signs Date Time Temp Pulse Resp B/P (MAP) Pulse Ox O2 Delivery O2 Flow Rate FiO2 05/07/25 11:00 98.8 66 15 115/49 (71) 96 Room Air 05/07/25 08:00 0.0 Laboratory Tests Test 05/06/25 06:50 05/06/25 08:30 05/06/25 08:58 05/06/25 10:09 White Blood Count 1.5 X10'3 Red Blood Count 2.09 X10'6 Hemoglobin 7.2 g/dl Hematocrit 20.8 % Mean Corpuscular Volume 99.4 FL Mean Corpuscular Hemoglobin 34.7 PG Mean Corpuscular Hemoglobin Concent 34.9 g/dL Red Cell Distribution Width 16.8 % Platelet Count 166 X10'3 Mean Platelet Volume 7.1 FL Neutrophils (%) (Auto) 60.1 % Lymphocytes (%) (Auto) 24.9 % Monocytes (%) (Auto) 12.3 % Eosinophils (%) (Auto) 2.2 % Basophils (%) (Auto) 0.5 % Neutrophils # (Auto) 0.9 X10'3 Lymphocytes # (Auto) 0.4 X10'3 Monocytes # (Auto) 0.2 X10'3 Eosinophils # (Auto) 0.0 X10'3 Basophils # (Auto) 0.0 X10'3 CBC Comment Differential Total Cells Counted 100 Neutrophils % (Manual) 62.0 % Lymphocytes % (Manual) 23.0 % Monocytes % (Manual) 13.0 % Eosinophils % (Manual) 1.0 % Metamyelocytes % 1.0 % Platelet Estimate Normal Red Blood Cell Morphology Perf Basophilic Stippling Anisocytosis 1+ Macrocytosis 1+ Sodium Level 129 MMOL/L Potassium Level 4.6 MMOL/L Chloride Level 96 MMOL/L Carbon Dioxide Level 24.9 MMOL/L Anion Gap 8 Blood Urea Nitrogen 20 MG/DL Creatinine 1.05 MG/DL Estimated GFR/1.73 m2 67 ML/MIN BUN/Creatinine Ratio 19.0 Glucose Level 142 MG/DL Calcium Level 8.1 MG/DL Magnesium Level 1.4 MG/DL Troponin I High Sensitivity 10 ng/L 10 ng/L 12 ng/L Pro-B-Type Natriuretic Peptide 1595 PG/ML Albumin 3.1 G/DL Chemistry Comments Urine Specimen Description Non-specified Urine Color Yellow Urine Clarity Clear Urine pH 5.5 Urine Specific [place] 1.015 Urine Protein Negative mg/dl Urine Glucose (UA) Negative mg/dl Urine Ketones Trace mg/dl Urine Occult Blood Negative Urine Nitrite Negative Urine Bilirubin Negative Urine Urobilinogen 0.2 E.U/dL Urine Leukocyte Esterase Negative Urine Culture Indicated Not ind Volume Urine Centrifuged 10 ml Urine Comment Prothrombin Time 11.9 SECONDS INR International Normalized Ratio 1.2 INR Activated Partial Thromboplast Time 31 SECONDS Coagulation Comments Troponin I High Sens Percent Delta 0 % 20 % Troponin I Hi Sens Absolute Change 0 ng/L 2 ng/L Test 05/06/25 10:16 05/06/25 11:54 05/06/25 13:10 05/06/25 14:30 Stool Occult Blood Negative Glucometer 123 mg/dl White Blood Count 1.5 X10'3 Red Blood Count 2.49 X10'6 Hemoglobin 8.8 g/dl Hematocrit 25.2 % Mean Corpuscular Volume 100.4 FL Mean Corpuscular Hemoglobin 35.3 PG Mean Corpuscular Hemoglobin Concent 35.1 g/dL Red Cell Distribution Width 16.1 % Platelet Count 164 X10'3 Mean Platelet Volume 7.0 FL Differential Total Cells Counted 100 Neutrophils % (Manual) 61.0 % Lymphocytes % (Manual) 34.0 % Monocytes % (Manual) 3.0 % Eosinophils % (Manual) 1.0 % Metamyelocytes % 1.0 % Platelet Estimate Normal Red Blood Cell Morphology Perf Basophilic Stippling Anisocytosis 1+ Erythrocyte Sedimentation Rate 16 MM/HR Reticulocyte Count (auto) 1.3 % Absolute Reticulocyte Count 21003 /CUMM Hematology Pathologist Comment See note Hematology Comments Lactic Acid Level 0.9 MMOL/L Lactate Dehydrogenase 154 U/L Clostridium Difficile Toxin A & B Negative Clostridium difficile Antigen Negative Test 05/06/25 17:10 05/06/25 18:11 05/06/25 20:31 05/07/25 03:22 Glucometer 162 mg/dl 105 mg/dl White Blood Count 1.7 X10'3 1.5 X10'3 Red Blood Count 2.37 X10'6 2.32 X10'6 Hemoglobin 8.4 g/dl 8.2 g/dl Hematocrit 23.5 % 23.1 % Mean Corpuscular Volume 99.0 FL 99.8 FL Mean Corpuscular Hemoglobin 35.5 PG 35.3 PG Mean Corpuscular Hemoglobin Concent 35.8 g/dL 35.4 g/dL Red Cell Distribution Width 16.3 % 16.7 % Platelet Count 169 X10'3 159 X10'3 Mean Platelet Volume 7.1 FL 6.8 FL Hematology Comments Iron Level 89 UG/DL Total Iron Binding Capacity 202 UG/DL Percent Iron Saturation 44 % Neutrophils (%) (Auto) 43.7 % Lymphocytes (%) (Auto) 40.9 % Monocytes (%) (Auto) 12.1 % Eosinophils (%) (Auto) 2.6 % Basophils (%) (Auto) 0.7 % Neutrophils # (Auto) 0.6 X10'3 Lymphocytes # (Auto) 0.6 X10'3 Monocytes # (Auto) 0.2 X10'3 Eosinophils # (Auto) 0.0 X10'3 Basophils # (Auto) 0.0 X10'3 CBC Comment Sodium Level 133 MMOL/L Potassium Level 4.7 MMOL/L Chloride Level 101 MMOL/L Carbon Dioxide Level 25.2 MMOL/L Anion Gap 7 Blood Urea Nitrogen 18 MG/DL Creatinine 1.06 MG/DL Estimated GFR/1.73 m2 66 ML/MIN BUN/Creatinine Ratio 17.0 Glucose Level 153 MG/DL Calcium Level 8.4 MG/DL Magnesium Level 1.4 MG/DL Albumin 3.0 G/DL Chemistry Comments Test 05/07/25 07:36 05/07/25 11:34 Glucometer 137 mg/dl White Blood Count 1.7 X10'3 Red Blood Count 2.34 X10'6 Hemoglobin 8.3 g/dl Hematocrit 23.6 % Mean Corpuscular Volume 100.8 FL Mean Corpuscular Hemoglobin 35.6 PG Mean Corpuscular Hemoglobin Concent 35.3 g/dL Red Cell Distribution Width 16.7 % Platelet Count 188 X10'3 Mean Platelet Volume 7.2 FL Hematology Comments General: Pale appearing, Awake, alert, and oriented x4, resting comfortably in the bed, in no acute distress . HEENT: Atraumatic, normocephalic, EOMI, anicteric sclera B; pale conjunctiva; PERRLA, normal oropharynx, moist oral and nasal mucosa. Tympanic membrane , nose , throat clear. Neck: Trachea midline. Supple, full range of motion, no JVD, bruit , hepatojugular reflex , lymphadenopathy or masses, or other lesions Cardiac: Regular rate, no murmurs, rubs, or gallops. Normal S1 and S2, no S3 noticed. PMI is normal. Respiratory: Equal breath sounds bilaterally, no tachypnea; lungs clear to auscultation bilaterally, no wheezing ,rub or rales, or crackles. Chest wall is symmetric and without deformity. No signs of trauma. Gastrointestinal: Abdomen symmetric, non-distended, soft, non-tender, normal bowel sounds x4 quadrant, normoactive, no tenderness on palpation. Back; no CVA tenderness bilaterally, no deformities. Neck and back are without deformity as well. No tenderness noted on palpation of the spinous processes. Spinous processes are midline. Cervical, thoracic, and lumbar paraspinal muscles are not tender and are without spasm. : normal external genitalia, without lesions, swelling, masses or tenderness. Musculoskeletal: Extremities, normal range of motion, non-tender, muscle strength 5/5 x 4. Negative Homans signs bilaterally on lower extremity. Distal pulses full symmetrical, no clubbing, cyanosis , edema. Neurological: Speech is clear, alert, and oriented x 4. No motor or sensory deficit, deep tendon reflexes normal, cerebellar intact. Cranial nerves II-XII intact. Psych: Alert and or appropriate, normal affect. Vascular: Good distal pulses, which are equal x4; capillary refill less than 2 seconds. Skin: Warm, pale, dry, no pallor, no rash or petechiae. Discharge instructions Follow up with your PCP in a week. Follow up with the crumb packer regarding your chronic anemia a newly diagnosed leukopenia with low absolute neutrophil count. Follow up with your racing car driver regarding recent hospitalization for atrial fibrillation. Continue taking your magnesium supplements. *Problems/Diagnosis: (1) Anemia Status: Acute (2) Atrial fibrillation with rapid ventricular response Status: Acute Total Time Spent on D/C: > 30 Minutes Date of Service: May 07, 2025 Billing Provider: KEV BARBER MD, JAHNAVI, RES May 07, 2025 14:22 STACY SPENCER, RES May 07, 2025 18:46
== END 2025-05-07 15:05 | disposition home or self-care (01) | DRG 312 ==
LOC: ER 06:36 → ED HOLD 10:58 → EDBEDREQ 12:11 → PCU 3S 12:29
PROVIDERS: ADMIT Family Medicine; ATTEND Family Medicine
PROC: 30233N1 Transfusion of Nonautologous Red Blood Cells into Peripheral Vein, Percutaneous Approach (ICD-10-PCS; principal; 2025-05-06)
DX: I95.1 Orthostatic hypotension (principal); E87.1 Hypo-osmolality and hyponatremia; I48.91 Unspecified atrial fibrillation; E11.9 Type 2 diabetes mellitus without complications; I10 Essential (primary) hypertension; N40.0 Benign prostatic hyperplasia without lower urinary tract symptoms; Z66 Do not resuscitate; D53.9 Nutritional anemia, unspecified; E83.42 Hypomagnesemia; D72.818 Other decreased white blood cell count; Z88.0 Allergy status to penicillin; Z79.84 Long term (current) use of oral hypoglycemic drugs; Z79.899 Other long term (current) drug therapy
CPT/HCPCS: 36415; 36430; 71045; 76700; 80048; 81003; 82272; 82948; 83010; 83540; 83550; 83605; 83615; 83735; 83880; 84466; 84484; 85007; 85025; 85027; 85045; 85610; 85651; 85730; 86880; 86885; 86900; 86901; 86920; 87040; 87081; 87324; 87449; 93005; 96361; 96365; 96372; 96375; 99285; G0378; J1644; J1815; J2470; J3490; J7030; J7040; P9016

== ENCOUNTER 2025-05-30 12:38 | Emergency (ER) | payer OTHER, MEDICARE ==
[~2025-05-30] VITALS: Ht 190.5 cm; Wt 86.0 kg
[2025-05-30] VITALS (8 sets, daily range): BP systolic 132–143; BP diastolic 64–73; PULSE 67–79; RESP 16; TEMP 97.4–97.8; O2SAT 99
[~2025-05-30 12:38] MED LIST changes: +AMLO2.5T2 PO; +METF-517 PO; -NITR100C6 PO; +SITA25TA3 PO; +TAMS-55 PO
[2025-05-30 13:37] LABS: MEAN PLATELET VOLUME 6.8 FL (7.4-10.4); RED CELL DISTRIBUTION WIDTH 17.2 % (11.5-14.5)
[2025-05-30 13:46] LABS: CREATININE 1.19 MG/DL (0.60-1.10); TOTAL CARBON DIOXIDE 27.2 MMOL/L (24-32); eCRCL 50 ML/MIN; eGFR 58 ML/MIN
[2025-05-30 14:19] LABS: EOSINOPHILS % (MANUAL) 1.0 % (0-6); LYMPHOCYTES % (MANUAL) 38.0 % (21-51); MONOCYTES % (MANUAL) 11.0 % (2-12); NEUTROPHILS % (MANUAL) 50.0 % (42-75); PLATELET ESTIMATE NORMAL
--- NOTE | 2025-05-30 14:43 | Physician Documentation ---
History of Present Illness ~ General Chief Complaint: Abnormal Lab(s) Stated Complaint: ABNORMAL LABS Time Seen by MD: 14:20 Primary Medical Doctor: dorothy Source: patient Mode of Arrival: POV Exam Limitations: no limitations History of Present Illness Initial Comments 89-year-old male was brought in to the emergency department and [facility] red blood [facility] as he has become acutely anemic with history of GI bleeds, AFib where he was on Eliquis which has been stopped. Patient is monitor closely and his WBCs were 1.8, RBCs 2.05 and hemoglobin 7.4. Patient was recently admitted at the end of April for anemia as well. Within the [facility] notes it does indicate chronic iron-deficiency anemia and chronic leukopenia however the trends are lower than normal for the patient. Patient has been seen by Oncology/Hematology the note reviewed by the [facility] not obtained by the ER. 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 Patient states he has an appointment on Tuesday with the [facility] for repeat labs and further workup. Patient denies any blood in his emesis or stool. Patient has no pain chest pain or shortness of breath. Medication Reconciliation Allergies: Coded Allergies: Penicillins (Verified Allergy, Unknown, 05/30/25) Scheduled Amlodipine* (Norvasc*), 1 TAB PO DAILY, (Reported) Carvedilol* (Coreg*), 1 TABLET PO BID, (Reported) Losartan Potassium (Losartan Potassium), 1 TAB PO DAILY, (Reported) Metformin HCl (Metformin HCl ER), 1 TAB PO BID, (Reported) Sitagliptin Phosphate* (Januvia*), 1 TAB PO DAILY, (Reported) Tamsulosin Hcl* (Flomax*), 1 CAP PO DAILY, (Reported) Past Medical History Past Medical History: Atrial Fibrillation, Hypertension, *HEMATOLOGY*, Anemia, BPH, Diabetes Past Surgical History: noncontributory Patient History: FH: cancer MOTHER Alcohol Use: None Drug Use: none Lives with: Spouse Lives In: Home Occupation: retired Review of Systems All Other Systems at this time: Reviewed and Negative Hematologic/Lymphatic: Reports: see HPI Physical Exam Physical Exam Vital Signs: RN Vital Signs have been reviewed: Yes, Temperature: 97.8, Source: Oral, Heart Rate: 69, Respiratory Rate: 16, BP: 126/63, Pulse Oximetry: 99, Weight: 86.000 Oxygen Flow Rate: 0 Physical Exam General: Alert, no apparent distress. HEENT: PERRL, EOMI, no injection, moist mucous membranes. Neck: Full range of motion. Respiratory: Lungs clear, no respiratory distress. Chest: No accessory muscle use. Cardiovascular: Regular rate and rhythm, no murmurs. Extremities: Normal range of motion, no deformity. Neurologic: Oriented x4. Psychiatric: Normal mood and affect. Skin: Pale color, warm and dry. No edema, no ecchymosis. Progress Results/Orders Results/Orders Vital Signs 05/30/25 05/30/25 05/30/25 05/30/25 12:50 13:57 15:20 15:41 Temp 97.8 97.8 Pulse 69 70 70 Resp 16 16 16 16 B/P (MAP) 126/63 139/75 (96) 132/64 Pulse Ox 99 99 O2 Flow Rate 0 0 05/30/25 05/30/25 05/30/25 05/30/25 15:56 16:11 16:26 16:41 Temp 97.4 97.7 97.7 97.7 Pulse 77 73 67 69 Resp 16 16 16 16 B/P (MAP) 141/73 135/72 134/70 143/73 05/30/25 05/30/25 16:56 17:11 Temp 97.6 97.7 Pulse 75 79 Resp 16 16 B/P (MAP) 142/71 134/65 Laboratory Tests Test 05/30/25 13:04 White Blood Count 2.0 L Red Blood Count 2.11 L Hemoglobin 7.7 L Hematocrit 21.3 *L Mean Corpuscular Volume 101.0 H Mean Corpuscular Hemoglobin 36.3 H Mean Corpuscular Hemoglobin Concent 36.0 Red Cell Distribution Width 17.2 H Platelet Count 183 Mean Platelet Volume 6.8 L Neutrophils (%) (Auto) 54.3 Lymphocytes (%) (Auto) 32.5 Monocytes (%) (Auto) 11.3 Eosinophils (%) (Auto) 1.5 Basophils (%) (Auto) 0.4 Neutrophils # (Auto) 1.1 L Lymphocytes # (Auto) 0.6 L Monocytes # (Auto) 0.2 Eosinophils # (Auto) 0.0 Basophils # (Auto) 0.0 CBC Comment Differential Total Cells Counted 100 Neutrophils % (Manual) 50.0 Lymphocytes % (Manual) 38.0 Monocytes % (Manual) 11.0 Eosinophils % (Manual) 1.0 Platelet Estimate Normal Red Blood Cell Morphology Perf Basophilic Stippling Anisocytosis 1+ Macrocytosis 1+ Sodium Level 127 L Potassium Level 4.9 Chloride Level 93 L Carbon Dioxide Level 27.2 Anion Gap 7 L Blood Urea Nitrogen 27 H Creatinine 1.19 H Estimated GFR/1.73 m2 58 BUN/Creatinine Ratio 22.7 H Glucose Level 157 H Calcium Level 8.2 L Total Bilirubin 0.6 Aspartate Amino Transf (AST/SGOT) 23 Alanine Aminotransferase (ALT/SGPT) 25 Alkaline Phosphatase 92 Total Protein 6.4 Albumin 3.6 Globulin 2.8 Albumin/Globulin Ratio 1.3 Chemistry Comments Medical Decision Making Additional information obtaine: old records, other Findings Patient has not known chronic anemia and leukopenia being closely evaluated and treated by the [facility]. 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 Patient is pale but vitals are reassuring. Hemoglobin hematocrit are low hematocrit at 21. A unit of packed red blood cells has been ordered discussed with patient the risks versus benefits of admission versus discharge. Patient is aware of the risks up to and including . Patient still desires to be discharged as he takes care of his . Patient does have a follow up appointment Tuesday morning with the [facility] which was also verified with the charge nurse. Patient received blood and feels better. Vitals are reassuring. Patient discharged to follow up Tuesday with [facility] Differential Diagnosis Chronic anemia, blood loss, GI bleed, leukopenia Departure Time of Disposition: 17:05 Disposition: 01 HOME / SELF CARE / HOMELESS Impression: Primary Impression: Abnormal laboratory test result Additional Impression: Anemia Condition: Stable Discharge Instructions: Anemia Additional Instructions: Follow up with the [facility] Tuesday for labs and evaluation as previously scheduled. Monitor closely your symptoms at home and feel free to return to the ER for any new or worsening symptoms Referrals: NO PRIMARY CARE PROVIDER (PCP) Education Educated: Patient Educated regarding: diagnosis, treatment, need for follow up Signature Scribe Signature: No scribe Attestation: The note accurately reflects work and decisions made by me.Sarika ABRAHAM 05/30/25 14:48 SARIKA MAYER NP May 30, 2025 14:42 EREN BIANCHI MD May 31, 2025 06:22
== END 2025-05-30 17:29 | disposition home or self-care (01) ==
LOC: ER 12:39
DX: R79.9 Abnormal finding of blood chemistry, unspecified (principal); D64.9 Anemia, unspecified; I48.91 Unspecified atrial fibrillation; I10 Essential (primary) hypertension; E11.9 Type 2 diabetes mellitus without complications; Z88.0 Allergy status to penicillin; Z79.899 Other long term (current) drug therapy; Z79.84 Long term (current) use of oral hypoglycemic drugs
CPT/HCPCS: 36415; 36430; 80053; 85007; 85025; 86885; 86900; 86901; 86920; 99285; P9016

== ENCOUNTER 2025-06-13 09:32 | Emergency (ER) | payer OTHER, MEDICARE ==
[~2025-06-13] VITALS: Ht 195.6 cm; Wt 88.7 kg
--- NOTE | 2025-06-13 09:50 | Physician Documentation ---
History of Present Illness ~ General Chief Complaint: Abnormal Lab(s) Stated Complaint: BLOOD TRANSFUSION Time Seen by MD: 09:46 Primary Medical Doctor: dorothy History of Present Illness Initial Comments 89-year-old male, sent in with anemia on outpatient blood work The patient tells me that he was seen in the [facility] today. He had outpatient blood work that showed low hemoglobin levels. He was told he needed to go to the ER. He otherwise does not really know why he needed to come here. He wonders if he needs a blood transfusion. He tells me that he feels well. No dizziness, shortness of breath, abdominal pain, or other concerns. He tells me a lot about his family including his great grandchildren Medication Reconciliation Allergies: Coded Allergies: Penicillins (Verified Allergy, Unknown, 06/13/25) Scheduled Amlodipine* (Norvasc*), 1 TAB PO DAILY, (Reported) Carvedilol* (Coreg*), 1 TABLET PO BID, (Reported) Losartan Potassium (Losartan Potassium), 1 TAB PO DAILY, (Reported) Metformin HCl (Metformin HCl ER), 1 TAB PO BID, (Reported) Sitagliptin Phosphate* (Januvia*), 1 TAB PO DAILY, (Reported) Tamsulosin Hcl* (Flomax*), 1 CAP PO DAILY, (Reported) Past Medical History Past Medical History: Atrial Fibrillation, Hypertension, *HEMATOLOGY*, Anemia, BPH, Diabetes Past Surgical History: noncontributory Patient History: FH: cancer MOTHER Alcohol Use: None Drug Use: none Lives with: Spouse Lives In: Home Occupation: retired Review of Systems All Other Systems at this time: Reviewed and Negative Physical Exam Physical Exam Vital Signs: Temperature: 97.2, Source: Temporal, Heart Rate: 82, Respiratory Rate: 18, BP: 146/53, Pulse Oximetry: 99, Weight: 88.700 Oxygen Flow Rate: 0 Physical Exam General: This is a pleasant and overall well-appearing elderly man sitting calmly in bed, very talkative HEENT: Atraumatic, oropharynx is moist Heart: Regular rate and rhythm, normal-appearing peripheral perfusion Lungs: normal work of breathing, normal oxygen saturation on room air Abdomen: Soft, nondistended, nontender all quadrants Neuro: Alert and oriented Psychiatric: Calm and cooperative with exam Progress Results/Orders Results/Orders Orders - MAHENDRA DUMONT MD Type And Screen (06/13/25 09:49) Lrpc - No Active Bleeding (06/13/25 12:01) Completed Orders - MAHENDRA DUMONT MD Cbc/Diff (06/13/25 09:49) CMP (06/13/25 09:49) Man Diff (06/13/25 09:59) Vital Signs 06/13/25 06/13/25 09:39 11:25 Temp 97.2 Pulse 82 69 Resp 18 18 B/P (MAP) 146/53 128/62 (84) Pulse Ox 99 96 O2 Flow Rate 0 0 Laboratory Tests Test 06/13/25 09:59 White Blood Count 1.4 L Red Blood Count 2.24 L Hemoglobin 7.8 L Hematocrit 22.4 L Mean Corpuscular Volume 100.3 H Mean Corpuscular Hemoglobin 35.0 H Mean Corpuscular Hemoglobin Concent 34.9 Red Cell Distribution Width 19.1 H Platelet Count 195 Mean Platelet Volume 7.0 L Neutrophils (%) (Auto) 52.0 Lymphocytes (%) (Auto) 33.7 Monocytes (%) (Auto) 11.1 Eosinophils (%) (Auto) 2.6 Basophils (%) (Auto) 0.6 Neutrophils # (Auto) 0.7 L Lymphocytes # (Auto) 0.5 L Monocytes # (Auto) 0.2 Eosinophils # (Auto) 0.0 Basophils # (Auto) 0.0 CBC Comment Differential Total Cells Counted 100 Neutrophils % (Manual) 50.0 Lymphocytes % (Manual) 37.0 Monocytes % (Manual) 10.0 Eosinophils % (Manual) 3.0 Platelet Estimate Normal Red Blood Cell Morphology Perf Hypochromasia 1+ Basophilic Stippling Anisocytosis 2+ Macrocytosis 1+ Sodium Level 127 L Potassium Level 4.6 Chloride Level 94 L Carbon Dioxide Level 28.3 Anion Gap 5 L Blood Urea Nitrogen 22 H Creatinine 0.91 Estimated GFR/1.73 m2 78 BUN/Creatinine Ratio 24.2 H Glucose Level 184 H Calcium Level 8.6 Total Bilirubin 0.5 Aspartate Amino Transf (AST/SGOT) 17 Alanine Aminotransferase (ALT/SGPT) 28 Alkaline Phosphatase 107 Total Protein 6.8 Albumin 3.8 Globulin 3.0 Albumin/Globulin Ratio 1.3 Chemistry Comments Consults/PCP Consults/PCP : Additional Comment Consult: [facility] are requesting that he receive 1 unit PRBCs, because his blood counts continued to drift down and he is symptomatic. No other acute concerns Medical Decision Making Additional information obtaine: old records Findings Reviewed previous hospitalization including chronic anemia and testing for this Differential Diagnosis Differential diagnosis includes acute blood loss anemia, lab error Assessment 89-year-old male presenting with reported anemia and outpatient lab testing. Here in the ED he is essentially asymptomatic. He has no evidence of bleeding. He has a benign abdominal exam. Labs were repeated. On review of his records he actually has chronic anemia and does not have a significant drop in his hemoglobin. It is unclear exactly why he was sent to the emergency department. [facility] then attempted to [facility] They report that their concern is for worsening anemia which is intermittently symptomatic. They request that he receive 1 unit PRBCs. This seems reasonable. He was given a transfusion and will be discharged with outpatient follow up including Hematology Clinic. Departure Time of Disposition: 12:18 Disposition: 01 HOME / SELF CARE / HOMELESS Impression: Primary Impression: Anemia Condition: Improved Referrals: NO PRIMARY CARE PROVIDER (PCP) Education Educated: Patient Educated regarding: diagnosis, need for follow up Signature Scribe Signature: beni Attestation: MAHENDRA Ennis MD Jun 13, 2025 09:50
[2025-06-13 10:13] LABS: MEAN PLATELET VOLUME 7.0 FL (7.4-10.4); RED CELL DISTRIBUTION WIDTH 19.1 % (11.5-14.5)
[2025-06-13 10:23] LABS: CREATININE 0.91 MG/DL (0.60-1.10); TOTAL CARBON DIOXIDE 28.3 MMOL/L (24-32); eCRCL 69 ML/MIN; eGFR 78 ML/MIN
[2025-06-13 11:03] LABS: EOSINOPHILS % (MANUAL) 3.0 % (0-6); LYMPHOCYTES % (MANUAL) 37.0 % (21-51); MONOCYTES % (MANUAL) 10.0 % (2-12); NEUTROPHILS % (MANUAL) 50.0 % (42-75); PLATELET ESTIMATE NORMAL
[2025-06-13 13:08] VITALS: BP 130/52; PULSE 66; RESP 20; TEMP 97.8
[2025-06-13 13:23] VITALS: BP 136/56; PULSE 67; RESP 18; TEMP 97.7
[2025-06-13 14:21] VITALS: BP 145/64; PULSE 72; RESP 18; TEMP 97.7
[2025-06-13 14:43] VITALS: BP 148/56; PULSE 60; RESP 18; TEMP 97.8
[2025-06-13 14:47] VITALS: BP 148/56; PULSE 71; RESP 20; TEMP 97.8; O2SAT 100
== END 2025-06-13 15:10 | disposition home or self-care (01) ==
LOC: ER 09:32
DX: D64.9 Anemia, unspecified (principal); I48.91 Unspecified atrial fibrillation; I10 Essential (primary) hypertension; E11.9 Type 2 diabetes mellitus without complications; Z88.0 Allergy status to penicillin; Z79.899 Other long term (current) drug therapy
CPT/HCPCS: 36415; 36430; 80053; 85007; 85025; 86885; 86900; 86901; 86920; 99285; P9016

== ENCOUNTER 2025-07-15 09:45 | Emergency (ER) | payer OTHER, MEDICARE ==
[~2025-07-15] VITALS: Ht 195.6 cm; Wt 89.2 kg
--- NOTE | 2025-07-15 10:06 | Physician Documentation ---
History of Present Illness General Chief Complaint: Abnormal Lab(s) Stated Complaint: SEE CHEIF COMPLAINT Time Seen by MD: 10:05 Primary Medical Doctor: dorothy History of Present Illness Initial Comments Patient is a 89-year-old male with known anemia who was received multiple transfusions in the past who was [facility] to the [facility] the [facility] for [facility]. The patient states he does not know why he has a anemia he has a hematology appointment coming up in the future. The patient states he was slightly weak and was seen at the [facility] and found to have a hemoglobin is 6. The patient denies any recent illness no fevers chills nausea or vomiting patient's symptoms are moderate and persistent Medication Reconciliation Allergies: Coded Allergies: Penicillins (Verified Allergy, Unknown, 07/15/25) RASH Scheduled Amlodipine* (Norvasc*), 1 TAB PO DAILY, (Reported) Carvedilol* (Coreg*), 1 TABLET PO BID, (Reported) Losartan Potassium (Losartan Potassium), 1 TAB PO DAILY, (Reported) Metformin HCl (Metformin HCl ER), 1 TAB PO BID, (Reported) Sitagliptin Phosphate* (Januvia*), 1 TAB PO DAILY, (Reported) Tamsulosin Hcl* (Flomax*), 1 CAP PO DAILY, (Reported) Past Medical History Past Medical History: Atrial Fibrillation, Hypertension, *HEMATOLOGY*, Anemia, BPH, Diabetes Past Surgical History: noncontributory Smoking: Quit greater than 1 year Alcohol Use: None Drug Use: none Lives with: Spouse Lives In: Home Occupation: retired Physical Exam Physical Exam Vital Signs: Temperature: 97.1, Heart Rate: 80, Respiratory Rate: 12, BP: 131/71, Pulse Oximetry: 96, Weight: 89.200 Oxygen Flow Rate: 0 Progress Results/Orders Results/Orders Completed Orders - INÉS GARCIA MD Type And Screen (07/15/25 09:58) Cbc/Diff (07/15/25 10:06) BMP (07/15/25 10:06) Lrpc - No Active Bleeding (07/15/25 11:15) Transfusion Informed Consent (07/15/25 11:15) Vital Signs 07/15/25 07/15/25 07/15/25 07/15/25 09:54 10:23 12:24 12:47 Temp 97.1 97.1 97.8 97.9 Pulse 80 70 67 69 Resp 12 16 12 17 B/P (MAP) 131/71 137/61 (86) 124/56 130/58 Pulse Ox 96 100 O2 Flow Rate 0 0 07/15/25 07/15/25 07/15/25 07/15/25 12:49 13:43 13:44 14:46 Temp 97.8 97.8 97.8 Pulse 71 77 68 Resp 18 20 15 B/P (MAP) 130/58 (82) 140/68 (92) 119/97 Pulse Ox 98 97 O2 Flow Rate 0 07/15/25 07/15/25 14:48 15:00 Temp 97.9 97.8 Pulse 67 75 Resp 15 16 B/P (MAP) 119/97 148/62 Pulse Ox 97 Laboratory Tests Test 07/15/25 10:10 White Blood Count 1.5 L Red Blood Count 1.88 L Hemoglobin 6.8 *L Hematocrit 19.6 *L Mean Corpuscular Volume 104.2 H Mean Corpuscular Hemoglobin 36.3 H Mean Corpuscular Hemoglobin Concent 34.9 Red Cell Distribution Width 21.3 H Platelet Count 178 Mean Platelet Volume 7.2 L Neutrophils (%) (Auto) 51.2 Lymphocytes (%) (Auto) 34.3 Monocytes (%) (Auto) 11.8 Eosinophils (%) (Auto) 2.2 Basophils (%) (Auto) 0.5 Neutrophils # (Auto) 0.8 L Lymphocytes # (Auto) 0.5 L Monocytes # (Auto) 0.2 Eosinophils # (Auto) 0.0 Basophils # (Auto) 0.0 CBC Comment Platelet Estimate Normal Red Blood Cell Morphology Perf Hypochromasia 1+ Basophilic Stippling Anisocytosis 3+ Macrocytosis 1+ Sodium Level 132 L Potassium Level 4.6 Chloride Level 99 Carbon Dioxide Level 25.7 Anion Gap 7 L Blood Urea Nitrogen 27 H Creatinine 1.21 H Estimated GFR/1.73 m2 56 BUN/Creatinine Ratio 22.3 H Glucose Level 192 H Calcium Level 8.2 L Albumin 4.0 Chemistry Comments Medical Decision Making Additional information obtaine: old records Findings The patient is a an 89-year-old male presents with anemia of unknown etiology the patient has had multiple transfusions in the past [facility] with a hemoglobin is 6, the patient's hemoglobin here was six he was consented for a transfusion of 1 unit of PRBCs the patient was given a unit of PRBCs. 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 Prior hospitalizations has been reviewed. The patient will be discharged with instructions to follow up as an outpatient. Differential Diagnosis GI bleed, iron deficiency anemia, anemia chronic disease, Departure Time of Disposition: 12:36 Disposition: 01 HOME / SELF CARE / HOMELESS Impression: Primary Impression: Anemia Qualified Codes: D64.9 - Anemia, unspecified Discharge Instructions: Anemia Referrals: NO PRIMARY CARE PROVIDER (PCP) Critical Care Note Total Time (mins): 35 Critical Care Note The very real possibility of a deterioration of this patient's condition req uired the highest level of my preparedness for sudden, emergent intervention. I provided critical care services, which included medication orders, frequent reevaluations of the patient's condition and response to treatment, ordering and reviewing test results, and discussing the case with various consultants. Excludes time spent performing separately billable procedures. The critical care time associated with the care of the patient was 35 minutes. Signature Scribe Signature: no scribe Attestation: The note accurately reflects work and decisions made by me.Inés Garcia MD 07:58 INÉS GARCIA MD Jul 15, 2025 10:06
[2025-07-15 10:40] LABS: CREATININE 1.21 MG/DL (0.60-1.10); TOTAL CARBON DIOXIDE 25.7 MMOL/L (24-32); eCRCL 52 ML/MIN; eGFR 56 ML/MIN
[2025-07-15 10:51] LABS: MEAN PLATELET VOLUME 7.2 FL (7.4-10.4); RED CELL DISTRIBUTION WIDTH 21.3 % (11.5-14.5)
[2025-07-15 12:24] VITALS: BP 124/56; PULSE 67; RESP 12; TEMP 97.8
[2025-07-15 12:29] LABS: PLATELET ESTIMATE NORMAL
[2025-07-15 12:47] VITALS: BP 130/58; PULSE 69; RESP 17; TEMP 97.9
[2025-07-15 14:46] VITALS: BP 119/97; PULSE 68; RESP 15; TEMP 97.8
[2025-07-15 14:48] VITALS: O2SAT 97
[2025-07-15 15:00] VITALS: BP 148/62; PULSE 75; RESP 16; TEMP 97.8
== END 2025-07-15 15:06 | disposition home or self-care (01) ==
LOC: ER 09:46
DX: D64.9 Anemia, unspecified (principal); I10 Essential (primary) hypertension; E11.9 Type 2 diabetes mellitus without complications; I48.91 Unspecified atrial fibrillation; Z88.0 Allergy status to penicillin; Z79.899 Other long term (current) drug therapy; Z79.84 Long term (current) use of oral hypoglycemic drugs
CPT/HCPCS: 36415; 36430; 80048; 85008; 85025; 86885; 86900; 86901; 86920; 99291; J7050; P9016; 99285

== ENCOUNTER 2025-08-05 09:48 | Emergency (ER) | payer OTHER, MEDICARE ==
[~2025-08-05] VITALS: Ht 195.6 cm; Wt 93.4 kg
--- NOTE | 2025-08-05 10:24 | Physician Documentation ---
History of Present Illness General Chief Complaint: Abnormal Lab(s) Stated Complaint: BLOOD TRANSFUSION Time Seen by MD: 10:24 Primary Medical Doctor: dorothy Source: patient Mode of Arrival: POV History of Present Illness Initial Comments 89 year old male presents to the emergency from the [facility] for complaints of abnormal labs. Patient states that he was seen at the [facility] and was found to be anemic. He states that he has been feeling very tired the past few days. He states that he has been loosing muscle mass as he has been unable to workout. Patient denies any use of blood thinners. Of note, patients lab results from 08/01: WBC: 1.3, RBC: 1.75, HGB, 6.0, HCT, 17.6. Medication Reconciliation Allergies: Coded Allergies: Penicillins (Verified Allergy, Unknown, 08/05/25) RASH Scheduled Amlodipine* (Norvasc*), 1 TAB PO DAILY, (Reported) Carvedilol* (Coreg*), 1 TABLET PO BID, (Reported) Losartan Potassium (Losartan Potassium), 1 TAB PO DAILY, (Reported) Metformin HCl (Metformin HCl ER), 1 TAB PO BID, (Reported) Sitagliptin Phosphate* (Januvia*), 1 TAB PO DAILY, (Reported) Tamsulosin Hcl* (Flomax*), 1 CAP PO DAILY, (Reported) Past Medical History Past Medical History: Atrial Fibrillation, Hypertension, *HEMATOLOGY*, Anemia, BPH, Diabetes Past Surgical History: noncontributory Smoking: Quit greater than 1 year Alcohol Use: None Drug Use: none Lives with: Spouse Lives In: Home Occupation: retired Review of Systems All Other Systems at this time: Reviewed and Negative ROS Patient was asked, but denied any other symptoms. All other systems are negative other than those mentioned above. Physical Exam Physical Exam Vital Signs: Temperature: 97.7, Source: Temporal, Heart Rate: 80, Respiratory Rate: 16, BP: 125/77, Pulse Oximetry: 100, Weight: 93.400 Oxygen Flow Rate: 0 Pulse Oximetry Reflects: adequate oxygenation Physical Exam VITALS: Reviewed and as above. GENERAL: Pale. Alert, no apparent distress. HEENT: Normocephalic, atraumatic. PERRL, EOMI. Dry mucosa, no erythema. RESPIRATORY: Lungs clear, normal breath sounds, no respiratory distress. CHEST: No accessory muscle use, no retractions. CV: Regular rate and rhythm. No edema, no murmur, No: JVD GI: Soft, non-tender, bowel sounds present. No rebound, guarding, or rigidity. BACK: No CVA tenderness, no swelling. MUSCULOSKELETAL: No deformities, no edema SKIN: Warm and dry, no rash. NEURO: Oriented x4. No motor or sensory deficit. PSYCH: Normal mood and affect, no agitation. Progress Results/Orders Results/Orders Completed Orders - OHLINÉS GONZALEZ MD Cbc/Diff (08/05/25 10:11) BMP (08/05/25 10:11) Type And Screen (08/05/25 10:11) Lrpc - No Active Bleeding (08/05/25 11:13) Transfusion Informed Consent (08/05/25 11:13) Vital Signs 08/05/25 08/05/25 08/05/25 08/05/25 10:03 10:58 12:29 12:44 Temp 97.7 97.8 97.7 Pulse 80 74 76 Resp 16 18 18 B/P (MAP) 125/77 136/60 (85) 128/70 (89) Pulse Ox 100 100 100 O2 Flow Rate 0 08/05/25 08/05/25 08/05/25 13:13 13:58 14:27 Temp 97.7 Pulse 80 76 74 Resp 18 18 18 B/P (MAP) 149/62 (91) 150/75 (100) 149/72 (97) Pulse Ox 99 100 99 Laboratory Tests Test 08/05/25 10:28 White Blood Count 1.2 L Red Blood Count 1.67 L Hemoglobin 6.0 *L Hematocrit 17.3 *L Mean Corpuscular Volume 103.8 H Mean Corpuscular Hemoglobin 36.1 H Mean Corpuscular Hemoglobin Concent 34.8 Red Cell Distribution Width 23.9 H Platelet Count 192 Mean Platelet Volume 7.4 Neutrophils (%) (Auto) 57.7 Lymphocytes (%) (Auto) 28.3 Monocytes (%) (Auto) 10.8 Eosinophils (%) (Auto) 2.8 Basophils (%) (Auto) 0.4 Neutrophils # (Auto) 0.7 L Lymphocytes # (Auto) 0.3 L Monocytes # (Auto) 0.1 Eosinophils # (Auto) 0.0 Basophils # (Auto) 0.0 CBC Comment Sodium Level 134 L Potassium Level 5.2 H Chloride Level 101 Carbon Dioxide Level 27.5 Anion Gap 6 L Blood Urea Nitrogen 26 H Creatinine 1.05 Estimated GFR/1.73 m2 67 BUN/Creatinine Ratio 24.8 H Glucose Level 235 H Calcium Level 8.3 L Albumin 3.6 Chemistry Comments Medical Decision Making Additional information obtaine: old records Findings The patient has a chronic anemia of unknown etiology and the patient presents essentially for blood transfusion he has gotten use in the past he does have an outpatient heme Onc consult coming up. The patient was given 1 unit of packed red blood cells and he will be discharged he is hemodynamically stable prior hospitalizations has been reviewed the patient's pulse oximetry was interpreted as normal and adequate in his arcgis developer was interpreted as a sinus rhythm. Differential Diagnosis Malignancy, GI bleed, iron deficiency anemia, anemia chronic disease, Departure Disposition: HOME / SELF CARE / HOMELESS Impression: Primary Impression: Anemia Referrals: NO PRIMARY CARE PROVIDER (PCP) Signature Scribe Signature: Scribed by Cong Moreland Attestation: The note accurately reflects work and decisions made by me.Inés Graf MD 08/06/25 17:45 INÉS GRAF MD Aug 05, 2025 10:24
[2025-08-05 11:00] LABS: MEAN PLATELET VOLUME 7.4 FL (7.4-10.4); RED CELL DISTRIBUTION WIDTH 23.9 % (11.5-14.5)
[2025-08-05 11:04] LABS: CREATININE 1.05 MG/DL (0.60-1.10); TOTAL CARBON DIOXIDE 27.5 MMOL/L (24-32); eCRCL 60 ML/MIN; eGFR 67 ML/MIN
[2025-08-05 13:13] VITALS: TEMP 97.7
[2025-08-05 14:27] VITALS: BP 149/72; PULSE 74; RESP 18; O2SAT 99
== END 2025-08-05 14:55 | disposition home or self-care (01) ==
LOC: ER 09:48
DX: D64.9 Anemia, unspecified (principal); E11.9 Type 2 diabetes mellitus without complications; I10 Essential (primary) hypertension; I48.91 Unspecified atrial fibrillation; Z88.0 Allergy status to penicillin; Z79.899 Other long term (current) drug therapy
CPT/HCPCS: 36415; 36430; 80048; 85025; 86885; 86900; 86901; 86920; 99285; P9016